=== PATIENT | male | born 1950 | race Native Hawaiian/Other Pacific Islander ===

== ENCOUNTER 2020-11-12 07:50 | Outpatient (CLI) | payer OTHER | END 2020-11-12 19:03 | disposition home or self-care (01) | LOC: CT 07:50 | PROVIDERS: ATTEND Family Medicine | DX: R10.9 Unspecified abdominal pain (principal); R19.09 Other intra-abdominal and pelvic swelling, mass and lump ==

== ENCOUNTER 2021-01-14 11:08 | Outpatient (CLI) | payer OTHER | END 2021-01-14 19:18 | disposition home or self-care (01) | LOC: RAD 11:08 | PROVIDERS: ATTEND Family Medicine | DX: M54.89 Other dorsalgia (principal); M25.552 Pain in left hip; M25.551 Pain in right hip ==

== ENCOUNTER 2021-02-16 10:06 | Outpatient (CLI) | payer OTHER | END 2021-02-16 21:01 | disposition home or self-care (01) | LOC: CT 10:06 | PROVIDERS: ATTEND Family Medicine | DX: R51.9 Headache, unspecified (principal); G51.0 Bell's palsy; I10 Essential (primary) hypertension; I25.10 Atherosclerotic heart disease of native coronary artery without angina pectoris ==

== ENCOUNTER 2021-04-15 14:46 | Outpatient (CLI) | payer OTHER ==
[2021-04-15 15:38] LABS: PLATELET COUNT 188 K/uL (142-355)
[2021-04-15 15:51] LABS: POTASSIUM 3.2 mmol/L (3.6-5.2)
[2021-04-16 03:39] LABS: PARTIAL THROMBOPLASTIN TIME 34.1 SECONDS (24.5-33.6)
== END 2021-04-15 19:01 | disposition home or self-care (01) ==
LOC: LABW 14:46
PROVIDERS: ATTEND Family Medicine
DX: R31.9 Hematuria, unspecified (principal); M54.89 Other dorsalgia; R30.0 Dysuria
CPT/HCPCS: 36415; 80053; 81000; 84154; 85027; 85610; 85730; 87077; 87086; 87088; 87186